=== PATIENT | female | born 1970 | race African-American/Black ===

== ENCOUNTER → 2016-06-23 | Outpatient (CLI) | payer BC | LOC: RAD 14:09 | DX: Z12.31 Encounter for screening mammogram for malignant neoplasm of breast (principal) ==

== ENCOUNTER → 2017-06-29 | Outpatient (CLI) | payer BC | LOC: RAD 01:57 | DX: Z12.31 Encounter for screening mammogram for malignant neoplasm of breast (principal) ==

== ENCOUNTER → 2018-07-05 | Outpatient (CLI) | payer BC | LOC: RAD 01:10 | DX: Z12.31 Encounter for screening mammogram for malignant neoplasm of breast (principal) ==

== ENCOUNTER 2019-05-31 20:38 | Emergency (ER) | payer BC ==
[~2019-05-31] VITALS: Ht 154.9 cm; Wt 79.4 kg
[2019-05-31] MEDS ORDERED: VALTREX 500 MG500 M1 PO (21:11)
[2019-05-31 22:56] VITALS: BP 168/93
== END 2019-05-31 22:58 | disposition home or self-care (01) ==
LOC: ER 20:38
DX: M71.21 Synovial cyst of popliteal space [Baker], right knee (principal); Z98.890 Other specified postprocedural states; Z88.2 Allergy status to sulfonamides

== ENCOUNTER → 2019-07-11 | Outpatient (CLI) | payer BC ==
[~2019-07-11] MED LIST: VALTREX 500 MG500 M1 PO
== END ==
LOC: BC 10:22
DX: Z12.31 Encounter for screening mammogram for malignant neoplasm of breast (principal)